=== PATIENT | male | born 1995 | race American Indian/Alaskan Native ===

== ENCOUNTER 2017-04-13 20:31 | Emergency (ER) | payer OTHER ==
[2017-04-13 20:38] VITALS: BP 141/89; PULSE 70; RESP 20; TEMP 97.4; O2SAT 98
--- NOTE | 2017-04-13 21:02 | C.PDOC ---
History Of Present Illness 21 y/o male presents to ED with complaints of cough, congestion, fever and sore throat for 3 days. Patient denies sick contacts, chest pain, sob, nausea or vomiting. Time Seen by Provider: 04/13/17 20:42 Chief Complaint (Nursing): Flu-like Symptoms History Per: Patient History/Exam Limitations: no limitations Onset/Duration Of Symptoms: Days Current Symptoms Are (Timing): Still Present Associated Symptoms: Fever, Cough, Nasal Congestion Past Medical History Reviewed: Historical Data, Nursing Documentation, Vital Signs Vital Signs: Last Vital Signs Temp 97.4 F L 04/13/17 20:34 Pulse 70 04/13/17 20:34 Resp 20 04/13/17 20:34 BP 141/89 04/13/17 20:34 Pulse Ox 98 04/13/17 21:28 - Medical History PMH: No Chronic Diseases Surgical History: No Surg Hx Family History: States: No Known Family Hx - Social History Hx Alcohol Use: Yes Hx Substance Use: Yes - Immunization History Hx Tetanus Toxoid Vaccination: No Hx Influenza Vaccination: No Hx Pneumococcal Vaccination: No Review Of Systems Constitutional: Positive for: Fever ENT: Positive for: Nose Congestion Cardiovascular: Negative for: Chest Pain Respiratory: Positive for: Cough. Negative for: Shortness of Breath Gastrointestinal: Negative for: Nausea, Vomiting Skin: Negative for: Rash Physical Exam - Physical Exam Appears: Non-toxic, No Acute Distress Skin: Warm, Dry, No Rash Head: Atraumatic, Normacephalic Eye(s): bilateral: Normal Inspection Ear(s): Bilateral: Normal Oral Mucosa: Moist Throat: Normal, No Erythema, No Exudate Neck: Normal ROM, Supple Cardiovascular: Rhythm Regular, No Murmur Respiratory: Normal Breath Sounds, No Rales, No Rhonchi, No Stridor, No Wheezing Gastrointestinal/Abdominal: Soft, No Tenderness, No Guarding, No Rebound Extremity: Bilateral: Atraumatic Neurological/Psych: Oriented x3, Normal Speech ED Course And Treatment O2 Sat by Pulse Oximetry: 98 (RA) Pulse Ox Interpretation: Normal Medical Decision Making Medical Decision Making: Patient with multi-symptom complaints, likely viral. Patient appears non-toxic and in no distress. Rx given. Patient advised to rest, drink fluids and take medications for supportive treatment. Patient stable for discharge and given follow up instructions. Disposition Counseled Patient/Family Regarding: Diagnosis, Need For Followup, Rx Given - Disposition Referrals: [facility] [Outside] [facility] [Outside] Disposition: HOME/ ROUTINE Disposition Time: 20:56 Condition: GOOD Additional Instructions: You have viral upper respiratory infection. Take Tylenol or Motrin alternating every 4-6 hours for Fever 100.4F or higher. Rest and drink plenty of fluids. May use cool mist humidifier or vaporizer in room. Follow up with your primary medical doctor or clinic in 1 week for further evaluation. Prescriptions: Benzonatate [Tessalon Perles] 100 mg PO TID #30 sgl Instructions: Viral Upper Respiratory Infection, Adult (DC) Forms: [employer] (Slovak), Work Excuse - POA Present On Arrival: None - Clinical Impression Clinical Impression: Upper respiratory infection - PA / [employer] / Resident Statement MD/DO has reviewed & agrees with the documentation as recorded. - Scribe Statement The provider has reviewed the documentation as recorded by the Scribe Nathan Sutton All medical record entries made by the Scribe were at my direction and personally dictated by me. I have reviewed the chart and agree that the record accurately reflects my personal performance of the history, physical exam, medical decision making, and the department course for this patient. I have also personally directed, reviewed, and agree with the discharge instructions and disposition.
== END 2017-04-13 21:25 | disposition home or self-care (01) ==
LOC: C.ER 20:31
DX: J06.9 Acute upper respiratory infection, unspecified (principal)